=== PATIENT | female | born 1975 | race Two or more races ===

== ENCOUNTER 2018-05-12 19:38 | Emergency (ER) | payer OTHER ==
[~2018-05-12] VITALS: Ht 149.9 cm; Wt 72.1 kg
[~2018-05-12 19:38] MED LIST: ASPI81TA27 PO; FURO20TA PO; HYDR10TA26 PO; LISI40TA PO; NIFE30TA76 PO; OME20T PO; POTA10TA79 PO
[2018-05-12 19:50] VITALS: BP 136/85
[2018-05-12] MEDS ORDERED: ASPirin 81 mg TAB PO ONE (20:00)
[2018-05-12 20:56] LABS: Basophils # (auto) 0 uL; Basophils % (auto) 0.5 % (0.0-2.0); Eosinophils # (auto) 0.1 uL; Eosinophils % (auto) 0.8 % (0.0-7.0); Hematocrit 41.7 % (36.0-46.0); Hemoglobin 13.7 g/dL (12.2-16.2); Lymphocytes # (auto) 1.3 uL; Lymphocytes % (auto) 14.3 % (10.0-50.0); Mean Corpuscular Hemoglobin 28.5 pg (28.0-32.0); Mean Corpuscular Hgb Conc. 32.8 g/dL (32.0-36.0); Mean Corpuscular Volume 86.9 fL (80.0-100.0); Monocytes # (auto) 0.4 uL; Monocytes % (auto) 4.9 % (0.0-12.0); Neutrophils # (auto) 7.1 uL; Neutrophils % (auto) 79.5 % (37.0-80.0); Platelet Count (auto) 340 10^3/uL (140-450); Red Cell Distribution Width 14.7 % (11.8-14.3)
[2018-05-12 21:18] LABS: Alanine Aminotransferase 20 U/L (13-56); Albumin 3.7 g/dL (3.4-5.0); Alkaline Phosphatase 67 U/L (45-117); Anion Gap 9 (5-15); Aspartate Aminotransferase 11 U/L (15-37); BUN/Creatinine Ratio 18.6; Bilirubin, Total 0.2 mg/dL (0.2-1.0); Blood Urea Nitrogen 13 mg/dL (7-18); Calcium 8.1 mg/dL (8.5-10.1); Carbon Dioxide 22 mmol/L (21-32); Chloride 107 mmol/L (98-107); GFR African American 119 mL/min; GFR Non-African American 98 mL/min; Glucose 106 mg/dL (74-106); Magnesium 2.6 mg/dL (1.6-2.6); Potassium 3.3 mmol/L (3.5-5.1); Sodium 138 mmol/L (136-145); Total Protein 7.5 g/dL (6.4-8.2)
== END 2018-05-12 21:41 | disposition home or self-care (01) ==
LOC: EDBD → ER 19:42 → EEVIPCON 19:42 → ER 21:41
DX: R07.89 Other chest pain (principal); I11.0 Hypertensive heart disease with heart failure; I50.9 Heart failure, unspecified; Z88.0 Allergy status to penicillin; Z86.73 Personal history of transient ischemic attack (TIA), and cerebral infarction without residual deficits; Z95.0 Presence of cardiac pacemaker; Z79.82 Long term (current) use of aspirin; Z79.899 Other long term (current) drug therapy
CPT/HCPCS: 36415; 80053; 83735; 84484; 85025; 93005; 94761

== ENCOUNTER 2020-04-02 13:51 | Inpatient (IN) | payer OTHER ==
[~2020-04-02] VITALS: Ht 152.4 cm; Wt 82.2 kg
[~2020-04-02 13:51] MED LIST changes: +ASPI-543 PO; -ASPI81TA27 PO; +FURO1TAB33 PO; -FURO20TA PO; -LISI40TA PO; +LISI40TA11 PO; +NIFE1TAB31 PO; -NIFE30TA76 PO; +POTA10TA32 PO; -POTA10TA79 PO
[2020-04-02] MEDS ORDERED: ONDANSETRON HCL 4 MG/2 ML VIAL IV ONE (14:15)
[2020-04-02 14:27] LABS: Basophils # (auto) 0.1 10 ^3/uL (0-0.2); Basophils % (auto) 0.9 % (0.0-2.0); Eosinophils # (auto) 0.1 10 ^3/uL (0-0.8); Eosinophils % (auto) 0.8 % (0.0-7.0); Hematocrit 38.8 % (36.0-46.0); Hemoglobin 12.6 g/dL (12.2-16.2); Lymphocytes # (auto) 1.1 10 ^3/uL (0.4-5.4); Lymphocytes % (auto) 16.9 % (10.0-50.0); Mean Corpuscular Hemoglobin 27.9 pg (28.0-32.0); Mean Corpuscular Hgb Conc. 32.4 g/dL (32.0-36.0); Monocytes # (auto) 0.4 10 ^3/uL (0-1.3); Monocytes % (auto) 5.8 % (0.0-12.0); Neutrophils # (auto) 5.1 10 ^3/uL (1.6-8.6); Neutrophils % (auto) 75.6 % (37.0-80.0); Platelet Count (auto) 308 10^3/uL (140-450); Red Blood Cells 4.51 10^6/uL (4.0-5.20); Red Cell Distribution Width 14.4 % (11.8-14.3); White Blood Cell 6.8 10^3/uL (4.4-10.8)
[2020-04-02 14:44] LABS: Chloride 109 mmol/L (98-107); Potassium 3.1 mmol/L (3.5-5.1); Sodium 141 mmol/L (136-145)
[2020-04-02 14:54] LABS: Alanine Aminotransferase 29 U/L (13-56); Albumin 3.8 g/dL (3.4-5.0); Alkaline Phosphatase 62 U/L (45-117); Anion Gap 7 (5-15); Aspartate Aminotransferase 18 U/L (15-37); BUN/Creatinine Ratio 15.9; Bilirubin, Total 0.2 mg/dL (0.2-1.0); Blood Urea Nitrogen 11 mg/dL (7-18); Calcium 8.3 mg/dL (8.5-10.1); Carbon Dioxide 25 mmol/L (21-32); GFR African American 119 mL/min; GFR Non-African American 98 mL/min; Glucose 121 mg/dL (74-106); Total Protein 7.3 g/dL (6.4-8.2)
[2020-04-02 15:02] LABS: Urine Bacteria NONE SEEN /hpf (None Seen); Urine Blood Negative /uL (Negative); Urine Specific Gravity 1.006 (1.001-1.035); Urine WBC 19 /hpf (0 - 5)
[2020-04-02] MEDS ORDERED: NITROGLYCERIN 0.4 MG SL TAB SL PRN (15:45)
[2020-04-02 17:00] VITALS: BP 144/94
[2020-04-02 17:09] VITALS: BP 144/94
[2020-04-02] MEDS ORDERED: PROP60CA34 PO (17:36)
[2020-04-02] MEDS ORDERED: FURO1TAB33 PO (17:36)
[2020-04-02] MEDS ORDERED: CLON0.1T PO (17:36)
[2020-04-02] MEDS ORDERED: OMEP20TA PO (17:36)
[2020-04-02] MEDS ORDERED: HYDR10TA26 PO (17:36)
[2020-04-02] MEDS ORDERED: LACT10SO70 PO (17:36)
[2020-04-02] MEDS: HYDROcodone-ACET 10/325MG TAB PO PRN (18:07)
[2020-04-02 21:59] VITALS: BP 146/92
[2020-04-02] MEDS ORDERED: hydrALAZINE HCL 10 MG TAB PO SCH (22:00)
[2020-04-03] MEDS ORDERED: POTASSIUM CHL 20MEQ/100ML 100 ML IV ONE (01:30)
[2020-04-03] MEDS: ONDANSETRON HCL 4 MG/2 ML VIAL IV PRN ×4 (02:04→21:50)
[2020-04-03] MEDS: HYDROcodone-ACET 10/325MG TAB PO PRN (02:04)
[2020-04-03] MEDS: LACTATED RINGER'S 1,000 ML IV SCH ×2 (02:04→21:50)
[2020-04-03 05:04] VITALS: BP 153/89
[2020-04-03] MEDS: SUCRALFATE 1 GM/10 ML ORAL SUSP GT SCH ×4 (07:00→21:49)
[2020-04-03 08:12] LABS: Amylase 51 U/L (25-115); Lipase 87 U/L (73-393)
[2020-04-03 08:13] LABS: Albumin 3.2 g/dL (3.4-5.0); Calcium 8.2 mg/dL (8.5-10.1); Potassium 3.4 mmol/L (3.5-5.1)
[2020-04-03 08:16] LABS: BUN/Creatinine Ratio 18.5; Bilirubin, Total 0.3 mg/dL (0.2-1.0); Total Protein 6.4 g/dL (6.4-8.2)
[2020-04-03 08:58] LABS: Basophils # (auto) 0.1 10 ^3/uL (0-0.2); Basophils % (auto) 0.7 % (0.0-2.0); Eosinophils # (auto) 0 10 ^3/uL (0-0.8); Eosinophils % (auto) 0.6 % (0.0-7.0); Hematocrit 38.3 % (36.0-46.0); Hemoglobin 12.2 g/dL (12.2-16.2); Lymphocytes # (auto) 1.7 10 ^3/uL (0.4-5.4); Lymphocytes % (auto) 22.5 % (10.0-50.0); Mean Corpuscular Hemoglobin 27.4 pg (28.0-32.0); Mean Corpuscular Hgb Conc. 31.8 g/dL (32.0-36.0); Mean Corpuscular Volume 86.3 fL (80.0-100.0); Monocytes # (auto) 0.5 10 ^3/uL (0-1.3); Monocytes % (auto) 6.5 % (0.0-12.0); Neutrophils # (auto) 5.2 10 ^3/uL (1.6-8.6); Neutrophils % (auto) 69.7 % (37.0-80.0); Platelet Count (auto) 288 10^3/uL (140-450); Red Blood Cells 4.44 10^6/uL (4.0-5.20); Red Cell Distribution Width 14.4 % (11.8-14.3); White Blood Cell 7.5 10^3/uL (4.4-10.8)
[2020-04-03 09:30] VITALS: BP 145/84
[2020-04-03] MEDS ORDERED: LISINOPRIL 20 MG TAB PO SCH (10:00)
[2020-04-03] MEDS: PANTOPRAZOLE 40 MG/10 ML VIAL INJ IV SCH ×2 (10:02→21:49)
[2020-04-03] MEDS: ASPirin 81 mg TAB PO SCH (10:02)
[2020-04-03] MEDS: FUROSEMIDE 20 MG TAB PO SCH (10:02)
[2020-04-03] MEDS: POTASSIUM CHL 10 Meq TABLET PO SCH (10:02)
[2020-04-03] MEDS: NIFEdipine ER 30 MG TAB PO SCH (10:03)
[2020-04-03] MEDS: ENOXAPARIN SOD 40 MG/0.4 ML SYRINGE SC SCH (10:03)
[2020-04-03] MEDS ORDERED: OMNIPAQUE ORAL SOLN 500ml 12mg/ml PO ONE (12:45)
[2020-04-03 12:46] VITALS: BP 158/87
[2020-04-03] MEDS ORDERED: ACETAMINOPHEN 325 MG TAB PO ONE (14:45)
[2020-04-03 17:02] VITALS: BP 136/84
[2020-04-03 22:00] VITALS: BP_SYST 125; BP_SYST 146; BP_DIAS 59; BP_DIAS 76
[2020-04-04] MEDS: HYDROcodone-ACET 10/325MG TAB PO PRN (00:30)
[2020-04-04 05:00] VITALS: BP 119/75
[2020-04-04] MEDS: SUCRALFATE 1 GM/10 ML ORAL SUSP GT SCH ×4 (05:55→21:57)
[2020-04-04 06:12] LABS: Potassium 3.1 mmol/L (3.5-5.1)
[2020-04-04 06:25] LABS: BUN/Creatinine Ratio 15.3; Calcium 8.2 mg/dL (8.5-10.1)
[2020-04-04] MEDS ORDERED: PROP60CA34 PO (08:37)
[2020-04-04] MEDS ORDERED: POTASSIUM EFFERVESENT TAB 25 MEQ PO ONE (08:45)
[2020-04-04 09:00] VITALS: BP 119/77
[2020-04-04] MEDS: ASPirin 81 mg TAB PO SCH (09:49)
[2020-04-04] MEDS: PANTOPRAZOLE 40 MG/10 ML VIAL INJ IV SCH ×2 (09:49→21:56)
[2020-04-04] MEDS: FUROSEMIDE 20 MG TAB PO SCH (09:49)
[2020-04-04] MEDS: POTASSIUM CHL 10 Meq TABLET PO SCH (09:49)
[2020-04-04] MEDS: NIFEdipine ER 30 MG TAB PO SCH (09:50)
[2020-04-04] MEDS: ENOXAPARIN SOD 40 MG/0.4 ML SYRINGE SC SCH (09:50)
[2020-04-04] MEDS: ACETAMINOPHEN 325 MG TAB PO PRN ×3 (11:56→21:56)
[2020-04-04] MEDS: PROPRANOLOL HCL 20 MG TAB PO SCH ×2 (14:00→22:12)
[2020-04-04] MEDS: ONDANSETRON HCL 4 MG/2 ML VIAL IV PRN (16:48)
[2020-04-04 17:00] VITALS: BP 111/63
[2020-04-04] MEDS: LACTATED RINGER'S 1,000 ML IV SCH (18:31)
[2020-04-04 22:15] VITALS: BP 118/77
[2020-04-05 05:17] VITALS: BP 111/75
[2020-04-05 05:26] LABS: Albumin 3.2 g/dL (3.4-5.0); Potassium 3.1 mmol/L (3.5-5.1)
[2020-04-05 05:32] LABS: BUN/Creatinine Ratio 11.9; Bilirubin, Total 0.3 mg/dL (0.2-1.0); Total Protein 6.4 g/dL (6.4-8.2)
[2020-04-05] MEDS: PROPRANOLOL HCL 20 MG TAB PO SCH ×3 (06:00→21:21)
[2020-04-05] MEDS: SUCRALFATE 1 GM/10 ML ORAL SUSP GT SCH ×4 (06:23→21:20)
[2020-04-05] MEDS: LACTATED RINGER'S 1,000 ML IV SCH (06:24)
[2020-04-05 08:00] VITALS: BP 106/65
[2020-04-05] MEDS ORDERED: ADENOSINE 45 MG in GIVE UN-DILUTED 0 ML IV STA (08:09)
[2020-04-05] MEDS: PANTOPRAZOLE 40 MG/10 ML VIAL INJ IV SCH ×2 (10:22→21:20)
[2020-04-05] MEDS: ENOXAPARIN SOD 40 MG/0.4 ML SYRINGE SC SCH (10:22)
[2020-04-05] MEDS: ASPirin 81 mg TAB PO SCH (10:22)
[2020-04-05] MEDS: FUROSEMIDE 20 MG TAB PO SCH ×2 (10:22→12:25)
[2020-04-05] MEDS: POTASSIUM CHL 10 Meq TABLET PO SCH (10:22)
[2020-04-05] MEDS: NIFEdipine ER 30 MG TAB PO SCH (10:23)
[2020-04-05] MEDS ORDERED: POTASSIUM EFFERVESENT TAB 25 MEQ GT ONE (12:00)
[2020-04-05] MEDS ORDERED: POTASSIUM EFFERVESENT TAB 25 MEQ PO ONE ×3 (12:00→14:15)
[2020-04-05 13:00] VITALS: BP 131/79
[2020-04-05] MEDS ORDERED: EZ-GAS II GRANULES (RADIOLOGY USE) PO ONE (14:52)
[2020-04-05] MEDS ORDERED: READI-CAT 2 (BARIUM SULF)(VANILLA SMOOTHIE) 450ML ONE (14:53)
[2020-04-05] MEDS ORDERED: BARIUM SULFATE 98% 340 GM PWDR ONE (14:54)
[2020-04-05] MEDS ORDERED: EZ PAQUE SUSP 12OZ BTL ONE (14:54)
[2020-04-05 17:00] VITALS: BP 120/72
[2020-04-05] MEDS: HYDROcodone-ACET 10/325MG TAB PO PRN (20:40)
[2020-04-05 22:00] VITALS: BP 129/77
[2020-04-06 05:00] VITALS: BP 105/66
[2020-04-06] MEDS: PROPRANOLOL HCL 20 MG TAB PO SCH ×3 (05:45→22:09)
[2020-04-06] MEDS: SUCRALFATE 1 GM/10 ML ORAL SUSP GT SCH ×4 (06:12→22:06)
[2020-04-06] MEDS: HYDROcodone-ACET 10/325MG TAB PO PRN (06:12)
[2020-04-06 07:53] LABS: BUN/Creatinine Ratio 17.1; Calcium 8.5 mg/dL (8.5-10.1); Potassium 3.5 mmol/L (3.5-5.1)
[2020-04-06 09:00] VITALS: BP 142/80
[2020-04-06] MEDS: ENOXAPARIN SOD 40 MG/0.4 ML SYRINGE SC SCH (09:35)
[2020-04-06] MEDS: ASPirin 81 mg TAB PO SCH (09:35)
[2020-04-06] MEDS: PANTOPRAZOLE 40 MG/10 ML VIAL INJ IV SCH ×2 (09:35→22:06)
[2020-04-06] MEDS: NIFEdipine ER 30 MG TAB PO SCH (09:36)
[2020-04-06] MEDS: POTASSIUM CHL 10 Meq TABLET PO SCH (09:36)
[2020-04-06] MEDS: FUROSEMIDE 20 MG TAB PO SCH (11:51)
[2020-04-06] MEDS: LACTATED RINGER'S 1,000 ML IV SCH (12:12)
[2020-04-06] MEDS ORDERED: DOCUSATE SOD 100 MG CAP PO ONE (19:30)
[2020-04-06 20:00] VITALS: BP 134/80
[2020-04-06] MEDS: ACETAMINOPHEN 325 MG TAB PO PRN (20:34)
[2020-04-06 22:00] VITALS: BP 134/80
[2020-04-06] MEDS: MILK OF MAGNESIA 30ML SUSP PO SCH (22:06)
[2020-04-07 05:00] VITALS: BP 115/75
[2020-04-07] MEDS: LACTATED RINGER'S 1,000 ML IV SCH (06:43)
[2020-04-07] MEDS: ACETAMINOPHEN 325 MG TAB PO PRN (06:43)
[2020-04-07] MEDS: PROPRANOLOL HCL 20 MG TAB PO SCH ×3 (06:43→22:24)
[2020-04-07] MEDS: SUCRALFATE 1 GM/10 ML ORAL SUSP GT SCH ×4 (06:44→22:14)
[2020-04-07] MEDS: MILK OF MAGNESIA 30ML SUSP PO SCH ×3 (06:44→22:14)
[2020-04-07 09:00] VITALS: BP 116/70
[2020-04-07] MEDS: ASPirin 81 mg TAB PO SCH (09:31)
[2020-04-07] MEDS: POTASSIUM CHL 10 Meq TABLET PO SCH (09:31)
[2020-04-07] MEDS: PANTOPRAZOLE 40 MG/10 ML VIAL INJ IV SCH ×2 (09:31→22:14)
[2020-04-07] MEDS: FUROSEMIDE 20 MG TAB PO SCH (09:32)
[2020-04-07] MEDS: ENOXAPARIN SOD 40 MG/0.4 ML SYRINGE SC SCH (09:37)
[2020-04-07] MEDS: NIFEdipine ER 30 MG TAB PO SCH (10:00)
[2020-04-07 10:36] LABS: BUN/Creatinine Ratio 14.8; Calcium 8.8 mg/dL (8.5-10.1); Potassium 3.2 mmol/L (3.5-5.1)
[2020-04-07 13:00] VITALS: BP 108/91
[2020-04-07] MEDS ORDERED: POTASSIUM CHL 20 Meq TABLET PO ONE (14:00)
[2020-04-07 17:00] VITALS: BP 113/92
[2020-04-07] MEDS: HYDROcodone-ACET 10/325MG TAB PO PRN (17:58)
[2020-04-07] MEDS ORDERED: methylPREDNISolone SOD SUCC 125 MG/2 ML VL IV ONE (21:30)
[2020-04-07 22:00] VITALS: BP 137/86
[2020-04-07] MEDS: diphenhdrAMINE HCL 50 MG/1 ML VL IV PRN (22:15)
[2020-04-08] MEDS: LACTATED RINGER'S 1,000 ML IV SCH (01:30)
[2020-04-08 05:00] VITALS: BP 120/76
[2020-04-08] MEDS: SUCRALFATE 1 GM/10 ML ORAL SUSP GT SCH ×2 (06:22→12:36)
[2020-04-08] MEDS: MILK OF MAGNESIA 30ML SUSP PO SCH ×2 (06:23→13:45)
[2020-04-08] MEDS: PROPRANOLOL HCL 20 MG TAB PO SCH ×2 (06:24→13:45)
[2020-04-08 08:40] VITALS: BP 123/77
[2020-04-08] MEDS: diphenhdrAMINE HCL 50 MG/1 ML VL IV PRN (08:48)
[2020-04-08] MEDS: PANTOPRAZOLE 40 MG/10 ML VIAL INJ IV SCH (09:23)
[2020-04-08] MEDS: POTASSIUM CHL 10 Meq TABLET PO SCH (09:24)
[2020-04-08] MEDS: ASPirin 81 mg TAB PO SCH (09:24)
[2020-04-08] MEDS: ENOXAPARIN SOD 40 MG/0.4 ML SYRINGE SC SCH (09:24)
[2020-04-08] MEDS: NIFEdipine ER 30 MG TAB PO SCH (09:25)
[2020-04-08] MEDS: FUROSEMIDE 20 MG TAB PO SCH (09:25)
[2020-04-08 12:30] VITALS: BP 123/86
[2020-04-08 14:34] VITALS: BP 123/86
== END 2020-04-08 15:40 | DRG 392 ==
LOC: ER 13:51 → EEVIPCON 13:51 → EDBD 13:51 → TELE 13:52 → TELE-CENTR 16:45
PROVIDERS: ADMIT Internal Medicine; ATTEND Internal Medicine
DX: K21.9 Gastro-esophageal reflux disease without esophagitis (principal); I69.354 Hemiplegia and hemiparesis following cerebral infarction affecting left non-dominant side; K52.9 Noninfective gastroenteritis and colitis, unspecified; E87.6 Hypokalemia; I11.0 Hypertensive heart disease with heart failure; I25.10 Atherosclerotic heart disease of native coronary artery without angina pectoris; K59.00 Constipation, unspecified; R04.0 Epistaxis; I50.9 Heart failure, unspecified; E66.9 Obesity, unspecified; R14.0 Abdominal distension (gaseous); Z88.5 Allergy status to narcotic agent; Z88.0 Allergy status to penicillin; Z91.018 Allergy to other foods; Z80.3 Family history of malignant neoplasm of breast; Z82.49 Family history of ischemic heart disease and other diseases of the circulatory system; Z95.0 Presence of cardiac pacemaker; I25.2 Old myocardial infarction; Z68.35 Body mass index [BMI] 35.0-35.9, adult; Z20.828 Contact with and (suspected) exposure to other viral communicable diseases
CPT/HCPCS: 36415; 71045; 71046; 74177; 74245; 76700; 78452; 80048; 80053; 81001; 82150; 83690; 83880; 84484; 85025; 85379; 93005; 93017; C9113; G0378; J0153; J2405; J3480

== ENCOUNTER 2020-07-16 13:45 | Inpatient (IN) | payer OTHER ==
[~2020-07-16] VITALS: Ht 154.9 cm; Wt 81.3 kg
[~2020-07-16 13:45] MED LIST changes: +CLON0.1T PO; -FURO1TAB33 PO; -LISI40TA11 PO; -OME20T PO; +OMEP20TA PO; -POTA10TA32 PO; +PROP60CA34 PO
[2020-07-16 14:58] LABS: Basophils # (auto) 0.1 10 ^3/uL (0-0.2); Basophils % (auto) 0.7 % (0.0-2.0); Eosinophils # (auto) 0.1 10 ^3/uL (0-0.8); Eosinophils % (auto) 0.9 % (0.0-7.0); Hematocrit 39.6 % (36.0-46.0); Hemoglobin 12.8 g/dL (12.2-16.2); Lymphocytes # (auto) 1.4 10 ^3/uL (0.4-5.4); Lymphocytes % (auto) 18.9 % (10.0-50.0); Mean Corpuscular Hemoglobin 28.3 pg (28.0-32.0); Mean Corpuscular Hgb Conc. 32.3 g/dL (32.0-36.0); Mean Corpuscular Volume 87.5 fL (80.0-100.0); Monocytes # (auto) 0.4 10 ^3/uL (0-1.3); Monocytes % (auto) 5.7 % (0.0-12.0); Neutrophils # (auto) 5.5 10 ^3/uL (1.6-8.6); Neutrophils % (auto) 73.8 % (37.0-80.0); Nucleated Red Blood Cells % 0.1 %; Platelet Count (auto) 298 10^3/uL (140-450); Red Blood Cells 4.53 10^6/uL (4.0-5.20); Red Cell Distribution Width 14.5 % (11.8-14.3); White Blood Cell 7.5 10^3/uL (4.4-10.8)
[2020-07-16 15:25] LABS: Albumin 3.7 g/dL (3.4-5.0); Anion Gap 5 (5-15); Blood Urea Nitrogen 14 mg/dL (7-18); Calcium 8.4 mg/dL (8.5-10.1); Carbon Dioxide 28 mmol/L (21-32); Chloride 106 mmol/L (98-107); Glucose 92 mg/dL (74-106); Potassium 3.6 mmol/L (3.5-5.1); Sodium 139 mmol/L (136-145)
[2020-07-16 15:29] LABS: Alanine Aminotransferase 24 U/L (13-56); Alkaline Phosphatase 68 U/L (45-117); Aspartate Aminotransferase 14 U/L (15-37); BUN/Creatinine Ratio 19.7; Bilirubin, Total 0.4 mg/dL (0.2-1.0); GFR African American 114 mL/min; GFR Non-African American 95 mL/min; Total Protein 7.3 g/dL (6.4-8.2)
[2020-07-16] MEDS ORDERED: ONDANSETRON HCL 4 MG/2 ML VIAL IV ONE (17:15)
[2020-07-16] MEDS ORDERED: HYDROcodone-ACET 5/325MG TAB PO ONE (17:15)
[2020-07-16] MEDS ORDERED: PROMETHAZINE HCL 25 MG/ML 1ML ONE (20:11)
[2020-07-16] MEDS ORDERED: PROMETHAZINE HCL 25 MG/ML 1ML IV ONE (20:15)
[2020-07-16 23:19] LABS: Urine Amorphous Crystal FEW /hpf (None Seen); Urine Bacteria NONE SEEN /hpf (None Seen); Urine Blood Negative /uL (Negative); Urine Mucus FEW (None Seen); Urine Specific Gravity 1.018 (1.001-1.035); Urine WBC 4 /hpf (0 - 5)
[2020-07-16] MEDS ORDERED: NITROGLYCERIN 0.4 MG SL TAB SL PRN (23:30)
[2020-07-17] VITALS (7 sets, daily range): BP systolic 112–149; BP diastolic 56–92
[2020-07-17] MEDS: ONDANSETRON HCL 4 MG/2 ML VIAL IV PRN ×2 (01:01→20:30)
[2020-07-17] MEDS: HYDROcodone-ACET 10/325MG TAB PO PRN ×3 (01:01→20:30)
--- NOTE | 2020-07-17 02:40 | NUR ---
Telemetry admit from ER LILIAN EUBANKS admitted to Telemetry unit after SBAR received. Patient oriented to JJ DALY, RN primary RN, unit, room, bed, and unit policies regarding patient care and visiting hours. Patient now on continuous telemetry monitoring, tele box # 42 and telemetry reading on arrival to unit is NSR 60 Heart rate. Patient, weighed by bedscale and encouraged to call if they need something. All questions and concerns addressed, patient verbalized understanding.
--- NOTE | 2020-07-17 06:25 | NUR ---
Mrsa sent to lab Sent MRSA swab to lab. Patient tolerated well. Will continue to monitor.
--- NOTE | 2020-07-17 06:45 | NUR ---
Paged Dr Rey Paged the doctor because patient has no cardio consults. Patient came in to rule out [place]. Patient also requesting tylenol for headache. Will continue to monitor patient.
--- NOTE | 2020-07-17 07:25 | NUR ---
Opening Shift Note Assumed care of patient, AOx4. No S/S of distress/SOB or pain. Instructed on POC and to call for assist PRN. Safety measures in place, including bed in lowest position, call light within reach. Will continue to monitor for changes.
--- NOTE | 2020-07-17 07:33 | NUR ---
Closing note Endorsed care to day shift RN. no sob or distress noted at this time. Let RN know that Dr Rey still awaiting page back.
[2020-07-17] MEDS: NIFEdipine ER 30 MG TAB PO SCH (09:41)
[2020-07-17] MEDS: hydrALAZINE HCL 10 MG TAB PO SCH (09:41)
[2020-07-17] MEDS: ASPirin-EC 81 mg tab PO SCH (09:42)
[2020-07-17] MEDS: cloNIDine HCL 0.1 MG TAB PO SCH ×2 (09:42→22:27)
[2020-07-17] MEDS: PROPRANOLOL HCL 60 MG PO SCH (09:47)
--- NOTE | 2020-07-17 10:36 | NUR ---
Patient off unit to radiology.
--- NOTE | 2020-07-17 10:51 | NUR ---
Patient back on unit from radiology.
--- NOTE | 2020-07-17 19:05 | NUR ---
Opening Shift Note Assumed care of patient, awake and alert. No S/S of distress/SOB. Pt complaining of headache 03/08, will medicate as prescribed. Safety measures in place, bed in lowest locked position, bed rails raised x2, call light within reach. Instructed on POC and to call for assist PRN, will continue to monitor for changes Q1hr and PRN.
--- NOTE | 2020-07-18 | NUR ---
Dr. Acevedo at bedside, orders received and being carried out.
[2020-07-18 05:11] VITALS: BP 112/67
[2020-07-18 07:30] VITALS: BP 113/71
--- NOTE | 2020-07-18 07:30 | NUR ---
Opening Shift Note Assumed care of patient, awake, alert, and oriented. No S/S of distress/SOB or pain. Bed in lowest/locked position, bed rails up x2, call light within reach. Instructed on POC and to call for assist PRN. Will continue to monitor for changes Q1hr and PRN.
[2020-07-18 08:20] VITALS: BP 113/71
[2020-07-18] MEDS: PROPRANOLOL HCL 60 MG PO SCH (08:26)
[2020-07-18] MEDS: cloNIDine HCL 0.1 MG TAB PO SCH ×2 (08:30→22:19)
[2020-07-18] MEDS: ASPirin-EC 81 mg tab PO SCH (08:30)
[2020-07-18] MEDS: hydrALAZINE HCL 10 MG TAB PO SCH (08:31)
[2020-07-18] MEDS: NIFEdipine ER 30 MG TAB PO SCH (08:32)
[2020-07-18 13:06] VITALS: BP 99/69
--- NOTE | 2020-07-18 15:54 | NUR ---
THEODORE PARDO RE: PATIENT STATING "SHE TAKES 20MG FUROSEMIDE BID AND 20 MEQ KCL BID". NO RECORD IN HER MED REC. AWAITING RETURN CALL Addendum: 07/18/20 at 1557 by BEBETO MARADIAGA RN RN "AND HER LEGS ARE SWELLING" NON-PITTING EDEMA, WARM TO TOUCH, PINK COLOR TO BILATERAL LOWER EXTREMITIES
--- NOTE | 2020-07-18 16:04 | NUR ---
RETURN CALL SPOKE WITH DR PARDO RE: PATIENT REQUEST. NEW ORDERS RECEIVED/WILL CARRY OUT. WILL CONTINUE TO MONITOR
[2020-07-18 16:27] VITALS: BP 142/85
[2020-07-18] MEDS: ONDANSETRON HCL 4 MG/2 ML VIAL IV PRN (16:43)
--- NOTE | 2020-07-18 17:14 | NUR ---
NORCO 10 PER PHARMACY "THEY'RE DOSING MACHINE IS DOWN AND THEY CAN'T RESTOCK NORCO 10" PAGED MD PARDO RE: CHANGE TO MEDICATION ADMINISTRATION, AWAITING RETURN CALL.
[2020-07-18] MEDS: POTASSIUM CHL 20 Meq TABLET PO SCH ×2 (18:04→22:19)
[2020-07-18] MEDS: FUROSEMIDE 20 MG TAB PO SCH (18:04)
--- NOTE | 2020-07-18 18:34 | NUR ---
[facility] 10 PER PHARMACY "THEY'RE DOSING MACHINE IS DOWN AND THEY CAN'T RESTOCK NORCO 10" 2nd PAGE TO MD PARDO RE: CHANGE TO MEDICATION ADMINISTRATION, AWAITING RETURN CALL.
--- NOTE | 2020-07-18 18:55 | NUR ---
DR PARDO RECIEVED CALL [facility] FROM DR PARDO RE: PATIENT PAIN MEDS. NEW ORDERS RECEIVED/WILL CARRY OUT. WILL CONTINUE TO MONITOR
--- NOTE | 2020-07-18 19:05 | NUR ---
Opening Shift Note Assumed care of patient, awake and alert. No S/S of distress/SOB. Pt complaining of headache 05/09, will medicate as prescribed. Safety measures in place, bed in lowest locked position, bed rails raised x2, call light within reach. Pt is an inmate, however has been furloughed by the custodial allowing her to be without guards at bedside. All needs addressed at this time. Instructed on POC and to call for assist PRN, will continue to monitor for changes Q1hr and PRN.
[2020-07-18] MEDS: HYDROcodone-ACET 5/325MG TAB PO PRN (19:45)
[2020-07-18 22:00] VITALS: BP 125/68
[2020-07-19 04:59] VITALS: BP 130/76
[2020-07-19] MEDS: FUROSEMIDE 20 MG TAB PO SCH ×2 (05:28→16:59)
[2020-07-19 05:49] LABS: Basophils # (auto) 0 10 ^3/uL (0-0.2); Basophils % (auto) 0.5 % (0.0-2.0); Eosinophils # (auto) 0.2 10 ^3/uL (0-0.8); Eosinophils % (auto) 3.1 % (0.0-7.0); Hematocrit 37.5 % (36.0-46.0); Lymphocytes # (auto) 1.7 10 ^3/uL (0.4-5.4); Lymphocytes % (auto) 30.5 % (10.0-50.0); Mean Corpuscular Hemoglobin 28.2 pg (28.0-32.0); Mean Corpuscular Hgb Conc. 32.1 g/dL (32.0-36.0); Mean Corpuscular Volume 87.9 fL (80.0-100.0); Monocytes # (auto) 0.5 10 ^3/uL (0-1.3); Monocytes % (auto) 9.1 % (0.0-12.0); Neutrophils # (auto) 3.1 10 ^3/uL (1.6-8.6); Neutrophils % (auto) 56.8 % (37.0-80.0); Platelet Count (auto) 277 10^3/uL (140-450); Red Blood Cells 4.27 10^6/uL (4.0-5.20); Red Cell Distribution Width 14.6 % (11.8-14.3); White Blood Cell 5.5 10^3/uL (4.4-10.8)
[2020-07-19 06:07] LABS: INR 0.96 (0.9-1.15); Partial Thromboplastin Time 26.2 sec (23.0-31.2)
[2020-07-19 06:13] LABS: Potassium 4.1 mmol/L (3.5-5.1)
[2020-07-19 06:19] LABS: Albumin 3.2 g/dL (3.4-5.0); BUN/Creatinine Ratio 17.3; Calcium 8.1 mg/dL (8.5-10.1)
[2020-07-19 06:21] LABS: Bilirubin, Total 0.2 mg/dL (0.2-1.0); Total Protein 6.3 g/dL (6.4-8.2)
--- NOTE | 2020-07-19 07:25 | NUR ---
OFF UNIT PATIENT TRANSFERRED TO [facility] FOR PROCEDURE. NO S/S OF DISTRESS, SOB, NO C/O PAIN AT TRANSFER
[2020-07-19] MEDS ORDERED: LIDOCAINE 2%HCL (LOCAL ANESTH.) INJ 20ML MDV ONE (07:40)
[2020-07-19] MEDS ORDERED: IODIXANOL 320MG/ML 100ML BTL IV ONE (07:40)
[2020-07-19] MEDS ORDERED: HEPARIN SODIUM (PORCINE) 5000 UNITS/ML 1ML VIAL ONE (08:17)
[2020-07-19] MEDS ORDERED: VERAPAMIL 2.5MG/ML INJ 2ML VIAL IV ONE (08:17)
[2020-07-19] MEDS ORDERED: ANGIOMAX 250 MG VIAL IV ONE ×2 (08:17→09:47)
[2020-07-19] MEDS ORDERED: ATROPINE SULF 1 MG/10ml SYR ONE (08:17)
[2020-07-19] MEDS ORDERED: MIDAZOLAM HCL 1MG/1ML-2 ML VIAL ONE (08:18)
[2020-07-19] MEDS ORDERED: SODIUM CHL 0.9% 50 ML ONE ×2 (08:18→09:48)
[2020-07-19] MEDS ORDERED: fentaNYL CITRATE 100 MCG/2 ML VL ONE (08:18)
[2020-07-19] MEDS ORDERED: TICAGRELOR 90 MG TAB ONE (09:47)
[2020-07-19] MEDS ORDERED: ASPirin 325 MG TAB ONE ×2 (09:48→09:53)
--- NOTE | 2020-07-19 09:56 | NUR ---
Patient brought to recovery via bed, report received from Palomo RN and HAFSA Huang. Patient is AO x 4, denies pain at this time. Right radial site is benign no s/s of bleeding or hematoma formation. Vasc Band is in place with positive circulation, movement and sensation noted to to BUE. Patient educated on post-procedure care instructions, verbalized understanding.
[2020-07-19] MEDS: ASPirin-EC 81 mg tab PO SCH (10:00)
[2020-07-19] MEDS: cloNIDine HCL 0.1 MG TAB PO SCH ×2 (10:00→22:08)
[2020-07-19] MEDS: PROPRANOLOL HCL 60 MG PO SCH (10:00)
--- NOTE | 2020-07-19 10:25 | NUR ---
Patient awake in bed. NAD noted. Right radial site remains unchanged.
[2020-07-19] MEDS ORDERED: TICAGRELOR 90 MG TAB PO ONE (11:00)
[2020-07-19] MEDS ORDERED: METOPROLOL TARTRATE 25 MG TAB PO ONE (11:00)
--- NOTE | 2020-07-19 11:03 | NUR ---
Report given to primary RNIlana.
--- NOTE | 2020-07-19 11:15 | NUR ---
Patient resting comfortably in bed with eyes closed. Breaths even and unlabored. NAD noted.
[2020-07-19] MEDS: ACETAMINOPHEN 325 MG TAB PO PRN (11:24)
[2020-07-19] MEDS: NIFEdipine ER 30 MG TAB PO SCH (11:24)
[2020-07-19] MEDS: POTASSIUM CHL 20 Meq TABLET PO SCH ×2 (11:24→22:08)
[2020-07-19] MEDS: hydrALAZINE HCL 10 MG TAB PO SCH (11:26)
--- NOTE | 2020-07-19 11:43 | NUR ---
VSS and WNL of baseline. Primary RNIlana present at bedside to transport patient to telemetry unit via bed, cafeteria monitor in place. Right radial site remains benign, no s/s of hematoma or bleeding noted to site. NAD noted upon departure. Care endorsed to HAFSA Preciado.
--- NOTE | 2020-07-19 11:45 | NUR ---
ON UNIT PATIENT RETURNED TO UNIT. VASC BAND PLACED TO RIGHT RADIAL, NO BLEEDING NOTED. WILL DEFLATE AIR PER ORDERS
--- NOTE | 2020-07-19 12:00 | NUR ---
VASC BAND 1200 2 ML REMOVED- NO BLEEDING, TRAUMA TO SITE. PATIENT TOLERATED WELL 1220 2 ML REMOVED- NO BLEEDING, TRAUMA TO SITE. PATIENT TOLERATED WELL 1240 2 ML REMOVED- NO BLEEDING, TRAUMA TO SITE. PATIENT TOLERATED WELL 1300 2 ML REMOVED- NO BLEEDING, TRAUMA TO SITE. PATIENT TOLERATED WELL
--- NOTE | 2020-07-19 12:30 | NUR ---
VASC BAND FINAL 2 ML REMOVED. NO BLEEDING, NO TRAUMA TO SITE. PATIENT TOLERATED WELL. GAUZE AND TEGADERM PLACED. PATIENT INSTRUCTED TO NOT PUT ANY PRESSURE, NO LIFTING TO RIGHT ARM. PATIENT VERBALIZED UNDERSTANDING. WILL CONTINUE TO MONITOR
[2020-07-19 13:00] VITALS: BP 133/97
[2020-07-19] MEDS: SOD CHL 0.45% 1,000 ML IV SCH (13:46)
[2020-07-19 16:57] VITALS: BP 131/92
[2020-07-19] MEDS: HYDROcodone-ACET 5/325MG TAB PO PRN ×2 (17:00→22:08)
--- NOTE | 2020-07-19 19:30 | NUR ---
Opening Note Patient resting in bed with even and unlabored respirations on room air, no distress noted. Instructed patient on POC, fall precautions, s/p LHC education, and to call for assistance as needed. Patient verbalized understanding. Fall precautions in place with call light within reach. Dressing to the RWR is clean, dry and intact with no ecchymosis, swelling or bleeding noted.
[2020-07-19 22:00] VITALS: BP 137/76
[2020-07-19] MEDS ORDERED: TICAGRELOR 90 MG TAB PO SCH (22:00)
[2020-07-19] MEDS: ATORVASTATIN 20 MG TAB PO SCH (22:07)
[2020-07-19] MEDS: ONDANSETRON HCL 4 MG/2 ML VIAL IV PRN (22:07)
[2020-07-19] MEDS: TICAGRELOR 90 MG TAB PO SCH (22:08)
[2020-07-19] MEDS: METOPROLOL TARTRATE 25 MG TAB PO SCH (22:09)
--- NOTE | 2020-07-19 22:50 | NUR ---
Patient resting in bed with even and unlabored respirations, no distress noted. Call light within reach.
[2020-07-20] MEDS: SOD CHL 0.45% 1,000 ML IV SCH (02:25)
--- NOTE | 2020-07-20 02:55 | NUR ---
Care endorsed to HAFSA Samano. Patient resting in bed with even and unlabored respirations, no distress noted. Fall precautions in place with call light within reach.
--- NOTE | 2020-07-20 03:00 | NUR ---
Opening Shift Note Assumed care of patient, pt asleep verbally awake and alert. No S/S of distress/SOB or pain. Instructed on POC and to call for assist PRN, will continue to monitor for changes Q1hr and PRN.
--- NOTE | 2020-07-20 04:28 | NUR ---
pt woke up stated "i feel like i have a sore throat" explained to patient that i will notify hospitalist pt verbalized understanding
[2020-07-20 05:00] VITALS: BP 114/77
[2020-07-20] MEDS: FUROSEMIDE 20 MG TAB PO SCH ×2 (05:02→17:05)
[2020-07-20 06:00] VITALS: BP 112/62
[2020-07-20] MEDS: PROPRANOLOL HCL 60 MG PO SCH (09:45)
[2020-07-20] MEDS: POTASSIUM CHL 20 Meq TABLET PO SCH ×2 (09:46→21:50)
[2020-07-20] MEDS: NIFEdipine ER 30 MG TAB PO SCH (09:46)
[2020-07-20] MEDS: hydrALAZINE HCL 10 MG TAB PO SCH (09:46)
[2020-07-20] MEDS: cloNIDine HCL 0.1 MG TAB PO SCH ×2 (09:46→21:50)
[2020-07-20] MEDS: METOPROLOL TARTRATE 25 MG TAB PO SCH ×2 (09:46→21:51)
[2020-07-20] MEDS: ASPirin-EC 81 mg tab PO SCH (09:46)
[2020-07-20] MEDS: TICAGRELOR 90 MG TAB PO SCH ×2 (09:46→21:49)
--- NOTE | 2020-07-20 09:46 | NUR ---
CLONIDINE HELD, PER PT REQUEST "I AM GETTING ALOT OF MEDICATION FOR MY BLOOD PRESSURE AND ITS NOT VERY HIGH" MADE AWARE
--- NOTE | 2020-07-20 09:59 | NUR ---
PATIENT CLEANED HERSELF UP AND TOLD ME SHE HAS A GENERALIZED RASH AND HER SKIN IS ITCHING, SLIGHT REDNESS NOTED ON ABDOMEN, SHE ALSO STATED THAT HER GUMS ARE SWOLLEN AND HAVE BLISTERS, PT ASKED "CAN THE CONTRAST I TOOK YESTERDAY DO THIS BECAUSE WHEN I GOT AN ECHO STRESS TEST BEFORE WITH CONTRAST THIS HAPPENED WELL", WILL PAGE MD AND NOTIFY OF POSSIBLE ALLERGY AND ANY NEW ORDERS
[2020-07-20] MEDS ORDERED: methylPREDNISolone SOD SUCC 125 MG/2 ML VL IM ONE (10:15)
--- NOTE | 2020-07-20 10:16 | NUR ---
MD PARDO AT STATION INFORMED HIM OF POSSIBLE CONTRAST REACTION, NEW ORDERS NOTED
[2020-07-20] MEDS ORDERED: methylPREDNISolone SOD SUCC 125 MG/2 ML VL IV ONE (10:30)
[2020-07-20] MEDS: diphenhdrAMINE HCL 50 MG/1 ML VL IV PRN ×2 (10:30→20:03)
[2020-07-20 12:33] VITALS: BP 104/65
--- NOTE | 2020-07-20 12:35 | NUR ---
Nutrition Assessment Est energy needs [id number] kcal (18-20 kcal/kg BW 82.3kg) Est protein needs 48-62g (1-1.3g/kg IBW 48kg) Will monitor and reassess prn. Addendum: 07/20/20 at [address] Amended: Links added.
[2020-07-20 16:48] VITALS: BP 117/76
[2020-07-20] MEDS: ACETAMINOPHEN 325 MG TAB PO PRN (20:02)
--- NOTE | 2020-07-20 20:20 | NUR ---
IV removal - left AC 20 gauge due to pain at site. IV DC'd with sterile technique, catheter fully intact. Pressure dressing applied to site. Patient tolerated procedure well.
--- NOTE | 2020-07-20 20:30 | NUR ---
IV insertion IV access obtained, via clean sterile technique by inserting 22 gauge catheter at right hand after 1 attempt(s). IV secured properly. No trauma to site. Patient tolerated procedure well.
[2020-07-20] MEDS: ONDANSETRON HCL 4 MG/2 ML VIAL IV PRN (21:48)
[2020-07-20] MEDS: ATORVASTATIN 20 MG TAB PO SCH (21:48)
--- NOTE | 2020-07-20 21:56 | NUR ---
Patient Complains of Dizziness and Nausea Patient given anti nausea medication as prescribed. Patient claims she vomited everything she ate. No other s/s of distress. Patient now comfortable in bed.
[2020-07-20 23:02] VITALS: BP 110/64
[2020-07-21] MEDS: diphenhdrAMINE HCL 50 MG/1 ML VL IV PRN ×2 (04:17→21:10)
[2020-07-21] MEDS: ACETAMINOPHEN 325 MG TAB PO PRN ×3 (04:18→21:10)
[2020-07-21] MEDS: FUROSEMIDE 20 MG TAB PO SCH ×2 (05:23→17:58)
[2020-07-21 05:46] VITALS: BP 110/71
--- NOTE | 2020-07-21 08:20 | NUR ---
Opening Note Assumed care of patient, she is A & O x4, no s/s of distress at this time, she c/o nausea and a headache. She states that she vomited after breakfast, unwitnessed. Will continue to monitor. Bed is in lowest, locked position, call light within reach. Will medicate per orders.
[2020-07-21 08:26] VITALS: BP 119/66
[2020-07-21] MEDS: ONDANSETRON HCL 4 MG/2 ML VIAL IV PRN (09:20)
[2020-07-21] MEDS: PROPRANOLOL HCL 60 MG PO SCH (10:00)
[2020-07-21] MEDS ORDERED: CLOPIDOGREL 300 MG TAB PO ONE ×2 (10:00→12:15)
[2020-07-21] MEDS ORDERED: ONDANSETRON HCL 4 MG/2 ML VIAL IV PRN (10:45)
[2020-07-21] MEDS: ASPirin-EC 81 mg tab PO SCH (10:52)
[2020-07-21] MEDS: POTASSIUM CHL 20 Meq TABLET PO SCH ×2 (10:53→21:10)
[2020-07-21] MEDS: NIFEdipine ER 30 MG TAB PO SCH (10:53)
[2020-07-21] MEDS: hydrALAZINE HCL 10 MG TAB PO SCH (10:54)
[2020-07-21] MEDS: cloNIDine HCL 0.1 MG TAB PO SCH ×2 (10:54→21:10)
[2020-07-21] MEDS: METOPROLOL TARTRATE 25 MG TAB PO SCH ×2 (10:55→21:11)
[2020-07-21 13:39] VITALS: BP 123/77
[2020-07-21 16:25] VITALS: BP 91/53
[2020-07-21 17:30] VITALS: BP 107/72
--- NOTE | 2020-07-21 18:00 | NUR ---
Jacinto held, patient BP trending low.
--- NOTE | 2020-07-21 18:01 | NUR ---
Patient asymptomatic of low BP at this time. Rechecked BP 107/72, HR at 65. Will continue to monitor.
--- NOTE | 2020-07-21 19:35 | NUR ---
Opening Shift Note Assumed care of patient, awake and alert. No S/S of distress/SOB. Updated on POC and to call for assist PRN, patient verbalized understanding, call light within reach, will continue to monitor for changes Q1hr and PRN.
[2020-07-21] MEDS: ATORVASTATIN 20 MG TAB PO SCH (21:09)
[2020-07-22 05:50] VITALS: BP 92/57
[2020-07-22] MEDS: FUROSEMIDE 20 MG TAB PO SCH (06:00)
--- NOTE | 2020-07-22 07:30 | NUR ---
Opening Shift Note Assumed care of patient, pt awake,alert and oriented. No S/S of distress/SOB or pain. Instructed on POC and to call for assist PRN, will continue to monitor for changes Q1hr and PRN.
[2020-07-22 08:48] VITALS: BP 111/69
[2020-07-22] MEDS: diphenhdrAMINE HCL 50 MG/1 ML VL IV PRN (09:29)
--- NOTE | 2020-07-22 09:30 | NUR ---
c/o throat pain and itchiness requested for Benadryl,medicated see eMAR
--- NOTE | 2020-07-22 09:54 | NUR ---
MD NOTIFIED CALLED AND NOTIFIED DR. Nora MARIN RE PATIENT SBP 90'S SINCE NOC SHIFT AND THIS A.M.,REVIEWED ALL MEDICATIONS AND ANTI HYPERTENSIVE MEDICATIONS WITH MD,RECEIVED ORDERS TO DISCONTINUE PROPRANOLOL,APRESOLINE,CATAPRES AND PROCARDIA XL,SEE ORDERS WRITTEN.
[2020-07-22] MEDS ORDERED: CLOPIDOGREL BISULFATE 75 MG TAB PO SCH (10:00)
[2020-07-22] MEDS: ASPirin-EC 81 mg tab PO SCH (10:33)
[2020-07-22] MEDS: POTASSIUM CHL 20 Meq TABLET PO SCH (10:36)
[2020-07-22] MEDS: METOPROLOL TARTRATE 25 MG TAB PO SCH (10:38)
[2020-07-22 11:50] VITALS: BP 117/81
--- NOTE | 2020-07-22 14:40 | NUR ---
MD VISIT DR. PARDO HERE TO SEE AND EXAMINED PATIENT RECEIVED ORDER FOR DISCHARGE,UPDATED WITH ADJUSTMENTS OF BP MEDICATION BY DR. Nora MARIN.
[2020-07-22] MEDS ORDERED: NITR0.4S29 SL (14:48)
[2020-07-22] MEDS ORDERED: ATOR20TA50 PO (14:48)
[2020-07-22] MEDS ORDERED: MET25T PO (14:48)
[2020-07-22] MEDS ORDERED: CLOP75TA28 PO (14:48)
[2020-07-22 17:00] VITALS: BP 135/86
[2020-07-22 17:12] VITALS: BP 135/86
--- NOTE | 2020-07-22 18:10 | NUR ---
Discharge instructions given as ordered. Encourage to follow up with MD [facility],as instructed. All questions and concerns addressed. Patient verbalized understanding. Medication reconciliation form completed and copy given to patient. IV removed with catheter intact, pressure dressing applied, Telemetry unit returned to ICU. Patient taken to vehicle via wheelchair with all personal belongings, accompanied by [facility] staff , No C/O CHEST PAIN ,NO distress noted at time of departure.
== END 2020-07-22 18:15 | DRG 247 ==
LOC: ER 13:45 → EDBD 13:45 → EEVIPCON 13:45 → TELE 13:46 → TELE-CENTR 07-17 02:40 → TELE-WESTW 07-22 14:23
PROVIDERS: ADMIT Internal Medicine; ATTEND Internal Medicine
PROC: 027034Z Dilation of Coronary Artery, One Artery with Drug-eluting Intraluminal Device, Percutaneous Approach (ICD-10-PCS; principal; 2020-07-19)
PROC: 02C03ZZ Extirpation of Matter from Coronary Artery, One Artery, Percutaneous Approach (ICD-10-PCS; 2020-07-19)
PROC: 4A023N7 Measurement of Cardiac Sampling and Pressure, Left Heart, Percutaneous Approach (ICD-10-PCS; 2020-07-19)
PROC: B2111ZZ Fluoroscopy of Multiple Coronary Arteries using Low Osmolar Contrast (ICD-10-PCS; 2020-07-19)
PROC: B2151ZZ Fluoroscopy of Left Heart using Low Osmolar Contrast (ICD-10-PCS; 2020-07-19)
PROC: 03HY32Z Insertion of Monitoring Device into Upper Artery, Percutaneous Approach (ICD-10-PCS; 2020-07-19)
DX: I24.9 Acute ischemic heart disease, unspecified (principal); I50.32 Chronic diastolic (congestive) heart failure; I69.354 Hemiplegia and hemiparesis following cerebral infarction affecting left non-dominant side; I25.10 Atherosclerotic heart disease of native coronary artery without angina pectoris; Z20.828 Contact with and (suspected) exposure to other viral communicable diseases; E78.5 Hyperlipidemia, unspecified; L50.9 Urticaria, unspecified; I11.0 Hypertensive heart disease with heart failure; Z88.5 Allergy status to narcotic agent; Z88.0 Allergy status to penicillin; Z91.041 Radiographic dye allergy status; Z91.018 Allergy to other foods; Z90.89 Acquired absence of other organs; Z95.0 Presence of cardiac pacemaker; Z82.49 Family history of ischemic heart disease and other diseases of the circulatory system; Z80.3 Family history of malignant neoplasm of breast; Z79.899 Other long term (current) drug therapy
CPT/HCPCS: 36415; 70450; 71045; 80053; 81001; 82565; 84484; 84520; 85025; 85610; 85730; 87081; 87426; 92933; 93005; 93458; 96374; 96375; 99152; 99153; C1874; G0378; J2250; J2405; Q9967